=== PATIENT | female | born 1975 | race Two or more races ===

== ENCOUNTER 2017-11-07 10:57 | Emergency (ER) | payer OTHER ==
[~2017-11-07] VITALS: Ht 162.6 cm; Wt 55.3 kg
[2017-11-07] MEDS ORDERED: NKM (11:04)
--- NOTE | 2017-11-07 11:53 | Diagnostic Imaging Report ---
Indication: Right elbow pain Technique: XRAY Elbow Min 3v R Comparison: None Findings: There is no acute fracture or dislocation. No elbow joint effusion is identified. Bone mineralization is normal. Impression: No acute osseous abnormality.
--- NOTE | 2017-11-07 12:47 | Emergency Room Report ---
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 On 08/19, she had a box tip and she had to stabilize it with her R arm. It weighed 50-70 lbs (not unusual for her job). She had pain in the elbow which started at that time and has persisted. It is worse with use of the arm. Pain rated at 6/10. She doesn't like to take medicine. She has used a brace which has helped. Aching pain. Not radiate. No numbness. No prior trauma. Not evaluated for this problem. No fevers. No medical problems. No chest pain, dyspnea. Not now. R handed. Allergies: Coded Allergies: No Known Allergies (Unverified , 11/07/17) Patient History Past Medical History: see triage record Social History: Denies: smoking Social History Narrative works at [employer] Last Menstrual Period: Sep Reviewed Nursing Documentation: PMH: Agreed, PSxH: Agreed Nursing Documentation-PMH Past Medical History: No Stated History Review of Systems All Other Systems: negative except mentioned in HPI Physical Exam Vital Signs Date Time Temp Pulse Resp B/P (MAP) Pulse Ox O2 Delivery O2 Flow Rate FiO2 11/07/17 11:00 98.7 77 16 115/76 97 Room Air 98.8 Sp02 EP Interpretation: reviewed, normal General Appearance: well appearing, no apparent distress Head: normocephalic, atraumatic Eyes: bilateral eye normal inspection, bilateral eye PERRL ENT: hearing grossly normal, normal voice, moist mucus membranes Neck: full range of motion, supple Respiratory: no respiratory distress, speaking full sentences Cardiovascular #2: 2+ radial (R) Musculoskeletal: back normal, digits/nails normal, gait/station normal, normal range of motion, other - tenderness TP R medial elbow, no shoulder or wrist pain Neurologic: alert, motor strength/tone normal, sensory intact, other - no unlar nerve tenderness, RMU nerves fully tested and normal Psychiatric: mood/affect normal Skin: no rash Medical Decision Making Diagnostic Impression: Primary Impression: Right elbow tendinitis ER Course Patient post injury to elbow 08/19 with continued pain. DDx; tendinits, strain , stress fracture amongst others. Xray indicated as is analgesia. Xray without fracture. Improved with treatment. Her brace is adequate at this time to support the elbow. Will need re-evaluation and possibly physical therapy. Patient stable for outpatient observation and treatment. Other X-Ray Diagnostic Results Other X-Ray Diagnostic Results : X-Ray ordered: r michael # of Views/Limited Vs Complete: 3 View Indication: Pain EP Interpretation: Yes Interpretation: no dislocation, no soft tissue swelling, no fractures Impression: No acute disease Electronically Signed by: Christopher Herman MD Last Vital Signs Date Time Temp Pulse Resp B/P (MAP) Pulse Ox O2 Delivery O2 Flow Rate FiO2 11/07/17 12:54 98.5 83 19 121/65 100 Room Air 98.7 Status: improved Disposition: HOME, SELF-CARE Condition: Improved Scripts Ibuprofen* (MOTRIN*) 600 Mg Tablet 600 MG ORAL Q6H Y for For Pain, #20 TAB Prov: Christopher Herman M.D. 11/07/17 Referrals: NOT CHOSEN TATIANNA/,REFERRING (PCP) Christopher Herman M.D. Nov 07, 2017 12:47
[2017-11-07] MEDS ORDERED: IBUPROFEN600 MG ORAL (12:49)
[2017-11-07 12:54] VITALS: BP 121/65
== END 2017-11-07 12:54 | disposition home or self-care (01) ==
LOC: EMR 12:00
DX: M77.9 Enthesopathy, unspecified (principal); M25.521 Pain in right elbow
CPT/HCPCS: 99283